=== PATIENT | female | born 1955 | race Caucasian/White ===

== ENCOUNTER 2022-09-24 11:04 | Emergency (ER) | payer MEDICARE, OTHER ==
[~2022-09-24] VITALS: Ht 170.2 cm; Wt 104.5 kg
[2022-09-24] MEDS ORDERED: ALBUTEROL SULF 2.5 MG/0.5ML(0.5%) NEB SOLN NEB ONE (11:45)
[2022-09-24] MEDS ORDERED: IPRATROPIUM BROM 0.5 MG/2.5ML INH SOL NEB ONE (11:45)
[2022-09-24 12:12] LABS: Basophils # (auto) 0.1 10 ^3/uL (0-0.2); Basophils % (auto) 1.1 % (0.0-2.0); Eosinophils # (auto) 0.2 10 ^3/uL (0-0.8); Red Cell Distribution Width 17.1 % (11.8-14.3); White Blood Cell 5.9 10^3/uL (4.4-10.8)
[2022-09-24 12:14] LABS: Eosinophils % (auto) 3.1 % (0.0-7.0); Hematocrit 40.5 % (36.0-46.0); Hemoglobin 13.2 g/dL (12.2-16.2); Lymphocytes # (auto) 1.5 10 ^3/uL (0.4-5.4); Lymphocytes % (auto) 25.7 % (10.0-50.0); Mean Corpuscular Hemoglobin 26.4 pg (28.0-32.0); Mean Corpuscular Hgb Conc. 32.6 g/dL (32.0-36.0); Mean Corpuscular Volume 80.8 fL (80.0-100.0); Monocytes # (auto) 0.3 10 ^3/uL (0-1.3); Monocytes % (auto) 4.3 % (0.0-12.0); Neutrophils # (auto) 3.9 10 ^3/uL (1.6-8.6); Neutrophils % (auto) 65.8 % (37.0-80.0); Nucleated Red Blood Cells % 0.2 %
[2022-09-24 12:35] LABS: INR 0.97 (0.9-1.15); Partial Thromboplastin Time 26.8 sec (24.6-33.4)
[2022-09-24 12:48] LABS: Albumin 3.8 g/dL (3.4-5.0); Calcium 8.7 mg/dL (8.5-10.1); Magnesium 2.1 mg/dL (1.6-2.6); Potassium 4.3 mmol/L (3.5-5.1)
[2022-09-24 12:51] LABS: BUN/Creatinine Ratio 23.1 (10.0-20.0); Bilirubin, Total 1.1 mg/dL (0.2-1.0); Total Protein 7.3 g/dL (6.4-8.2)
[2022-09-24] MEDS ORDERED: IOHEXOL 350 MG/ML 100ML IJ ONE (13:22)
[2022-09-24 15:00] VITALS: BP 133/65
[2022-09-24] MEDS ORDERED: hydrALAZINE HCL 20 MG/ML VL IV ONE (16:30)
[2022-09-24] MEDS ORDERED: KETOROLAC TROMETH 30 MG/ML 1ML VIAL IV ONE (16:45)
[2022-09-24] MEDS ORDERED: cefTRIAXone 1GM/50ML D5W 50 ML IV ONE (16:45)
[2022-09-24] MEDS ORDERED: CEPH250C PO (16:45)
== END 2022-09-24 17:20 | disposition home or self-care (01) ==
LOC: ER 11:04
DX: J18.9 Pneumonia, unspecified organism (principal); E11.9 Type 2 diabetes mellitus without complications; Z98.890 Other specified postprocedural states
CPT/HCPCS: 36415; 71045; 71275; 80053; 83735; 83880; 84484; 85025; 85379; 85610; 85730; 94640; 96365; 96375; 99285; J0696; J1885; J7644; Q9967

== ENCOUNTER 2023-01-24 09:06 | Inpatient (IN) | payer MEDICARE, BC ==
[~2023-01-24] VITALS: Ht 170.2 cm; Wt 97.1 kg
[2023-01-24] VITALS (12 sets, daily range): BP systolic 91–121; BP diastolic 45–66; PULSE 69–110; RESP 15–19; TEMP 98.3–98.5; O2SAT 94–100
[~2023-01-24 09:06] MED LIST: CEPH250C PO
[2023-01-24] MEDS ORDERED: HEPARIN SODIUM (PORCINE) 5000 UNITS/ML 1ML VIAL IV ONE (09:15)
[2023-01-24] MEDS ORDERED: MORPHINE SULFATE INJ 2 MG/ml SYRG IV ONE (09:15)
[2023-01-24] MEDS ORDERED: ONDANSETRON HCL 4 MG/2 ML VIAL IV ONE (09:15)
[2023-01-24] MEDS ORDERED: MORPHINE SULFATE INJ 2 MG/ml SYRG ONE (09:17)
[2023-01-24] MEDS ORDERED: HEPARIN SODIUM (PORCINE) 5000 UNITS/ML 1ML VIAL ONE (09:17)
[2023-01-24] MEDS ORDERED: ONDANSETRON HCL 4 MG/2 ML VIAL ONE (09:17)
[2023-01-24] MEDS ORDERED: LIDOCAINE 2%HCL (LOCAL ANESTH.) INJ 20ML MDV ONE (09:25)
[2023-01-24] MEDS ORDERED: HEPARIN IN NS 1000Units/500mL 1,500 ML ONE (09:25)
[2023-01-24] MEDS ORDERED: IODIXANOL 320MG/ML 100ML BTL IV ONE (09:25)
[2023-01-24] MEDS ORDERED: NITROGLYCERIN 0.4 MG SL TAB SL PRN (09:30)
[2023-01-24] MEDS ORDERED: MORPHINE SULFATE INJ 2 MG/ml SYRG IV PRN (09:30)
[2023-01-24] MEDS ORDERED: VERAPAMIL 2.5MG/ML INJ 2ML VIAL IV ONE (09:33)
[2023-01-24] MEDS ORDERED: MIDAZOLAM HCL 2MG/2ML 2ml VIAL (1mg/ml) ONE (09:34)
[2023-01-24] MEDS ORDERED: fentaNYL CITRATE 100 MCG/2 ML VL ONE (09:34)
[2023-01-24] MEDS ORDERED: ANGIOMAX 250 MG VIAL IV ONE (09:36)
[2023-01-24] MEDS ORDERED: SODIUM CHL 0.9% 50 ML ONE (09:36)
[2023-01-24] MEDS ORDERED: ATROPINE SULF 1 MG/10ml SYR ONE (09:40)
[2023-01-24 09:44] LABS: Basophils # (auto) 0.1 10 ^3/uL (0-0.2); Eosinophils # (auto) 0.4 10 ^3/uL (0-0.8); Eosinophils % (auto) 3.8 % (0.0-7.0); Hematocrit 39.8 % (36.0-46.0); Hemoglobin 12.8 g/dL (12.2-16.2); Lymphocytes # (auto) 3.1 10 ^3/uL (0.4-5.4); Lymphocytes % (auto) 32.3 % (10.0-50.0); Mean Corpuscular Hemoglobin 25.3 pg (28.0-32.0); Mean Corpuscular Hgb Conc. 32.1 g/dL (32.0-36.0); Mean Corpuscular Volume 78.8 fL (80.0-100.0); Monocytes # (auto) 0.8 10 ^3/uL (0-1.3); Monocytes % (auto) 7.9 % (0.0-12.0); Neutrophils # (auto) 5.3 10 ^3/uL (1.6-8.6); Nucleated Red Blood Cells % 0.1 %; Red Blood Cells 5.05 10^6/uL (4.0-5.20); Red Cell Distribution Width 20.4 % (11.8-14.3); White Blood Cell 9.7 10^3/uL (4.4-10.8)
[2023-01-24 09:54] LABS: Triglycerides 154 mg/dL (< 150)
[2023-01-24 09:55] LABS: Alanine Aminotransferase 16 U/L (7-40); Alkaline Phosphatase 78 U/L (46-116); Anion Gap 9 (5-15); Aspartate Aminotransferase 21 U/L (13-40); BUN/Creatinine Ratio 25.6 (10.0-20.0); Blood Urea Nitrogen 22 mg/dL (9-23); Carbon Dioxide 23 mmol/L (20-30); Chloride 107 mmol/L (98-107); Glucose 182 mg/dL (74-106); LDL Cholesterol 53 mg/dL (< 100); Potassium 4.4 mmol/L (3.5-5.1); Sodium 139 mmol/L (136-145)
[2023-01-24 09:56] LABS: Albumin 4.7 g/dL (3.2-4.8); Bilirubin, Total 1.3 mg/dL (0.2-1.0); Cholesterol 110 mg/dL (< 200); HDL Cholesterol 35 mg/dL (40-59); Total Protein 7.2 g/dL (5.7-8.2)
[2023-01-24] MEDS ORDERED: TICAGRELOR 90 MG TAB ONE (09:57)
[2023-01-24] MEDS ORDERED: LEVOTHYROXINE SODIUM 50 MCG TAB PO ONE (10:45)
[2023-01-24] MEDS ORDERED: DEXTROSE (50%) 50ML SYRG IV PRN (11:00)
[2023-01-24] MEDS: InsuLIN REG 1unit/0.01ml Soln (100units/ml) SC SCH ×3 (11:30→22:00)
[2023-01-24] MEDS: ACCU-CHEK COMFORT CURVE STRIP VI SCH ×3 (11:30→22:01)
[2023-01-24] MEDS ORDERED: ROSU10TA16 PO (14:03)
[2023-01-24] MEDS ORDERED: METF-372 PO (14:03)
[2023-01-24] MEDS ORDERED: LOPE7.5C PO (14:03)
[2023-01-24] MEDS ORDERED: EMPA1TAB3 PO (14:03)
[2023-01-24] MEDS ORDERED: ACET500T58 PO (14:03)
[2023-01-24] MEDS ORDERED: GABA-1250 PO (14:03)
[2023-01-24] MEDS ORDERED: LEVO50TA7 PO (14:03)
[2023-01-24] MEDS ORDERED: ERGO1CAP12 PO (14:03)
[2023-01-24] MEDS: SODIUM CHLORIDE 0.9% 1,000 ML IV SCH (17:58)
[2023-01-24] MEDS: TICAGRELOR 90 MG TAB PO SCH (22:01)
[2023-01-24] MEDS: ATORVASTATIN 20 MG TAB PO SCH (22:01)
[2023-01-25] VITALS (7 sets, daily range): BP systolic 108–128; BP diastolic 52–71; PULSE 63–82; RESP 18–20; TEMP 97.4–97.9; O2SAT 92–97
[2023-01-25] MEDS ORDERED: ACETAMINOPHEN 325 MG TAB PO PRN (05:00)
[2023-01-25] MEDS: ACCU-CHEK COMFORT CURVE STRIP VI SCH ×4 (06:32→23:00)
[2023-01-25] MEDS: SODIUM CHLORIDE 0.9% 1,000 ML IV SCH ×3 (06:32→23:00)
[2023-01-25] MEDS: InsuLIN REG 1unit/0.01ml Soln (100units/ml) SC SCH ×4 (06:33→23:05)
[2023-01-25] MEDS ORDERED: LEVOTHYROXINE SODIUM 50 MCG TAB PO SCH (07:00)
[2023-01-25] MEDS: TICAGRELOR 90 MG TAB PO SCH ×2 (09:20→22:59)
[2023-01-25] MEDS: ASPirin 81 mg TAB PO SCH (09:20)
[2023-01-25] MEDS ORDERED: ATORVASTATIN 20 MG TAB PO SCH (10:00)
[2023-01-25 12:38] LABS: Basophils # (auto) 0.1 10 ^3/uL (0-0.2); Eosinophils # (auto) 0.2 10 ^3/uL (0-0.8); Hemoglobin 11.7 g/dL (12.2-16.2); Monocytes # (auto) 0.4 10 ^3/uL (0-1.3)
[2023-01-25 12:39] LABS: Basophils % (auto) 0.8 % (0.0-2.0); Eosinophils % (auto) 3.3 % (0.0-7.0); Hematocrit 36.5 % (36.0-46.0); Lymphocytes # (auto) 1.5 10 ^3/uL (0.4-5.4); Lymphocytes % (auto) 21.8 % (10.0-50.0); Mean Corpuscular Hemoglobin 25.2 pg (28.0-32.0); Mean Corpuscular Volume 78.8 fL (80.0-100.0); Neutrophils # (auto) 4.6 10 ^3/uL (1.6-8.6); Neutrophils % (auto) 68.1 % (37.0-80.0); Red Blood Cells 4.63 10^6/uL (4.0-5.20); White Blood Cell 6.7 10^3/uL (4.4-10.8)
[2023-01-25 12:40] LABS: Red Cell Distribution Width 20.5 % (11.8-14.3)
[2023-01-25 12:56] LABS: Chloride 108 mmol/L (98-107); Potassium 3.7 mmol/L (3.5-5.1); Sodium 141 mmol/L (136-145)
[2023-01-25 12:57] LABS: Anion Gap 7 (5-15); Carbon Dioxide 26 mmol/L (20-30)
[2023-01-25 13:02] LABS: Blood Urea Nitrogen 15 mg/dL (9-23); Glucose 163 mg/dL (74-106)
[2023-01-25 14:04] LABS: Anisocytosis Slight; Platelet Estimate Adequate
[2023-01-25 14:21] LABS: Free T3 2.06 pg/mL (2.3-4.2)
[2023-01-25 14:22] LABS: Free T4 (Free Thyroxine) 0.57 ng/dL (0.89-1.76)
[2023-01-25] MEDS: METOPROLOL TARTRATE 25 MG TAB PO SCH (22:59)
[2023-01-25] MEDS: ATORVASTATIN 20 MG TAB PO SCH (23:00)
[2023-01-26 05:00] VITALS: BP 98/62; PULSE 70; RESP 18; TEMP 97.6; O2SAT 97
[2023-01-26] MEDS: ACCU-CHEK COMFORT CURVE STRIP VI SCH ×2 (06:09→11:30)
[2023-01-26] MEDS: InsuLIN REG 1unit/0.01ml Soln (100units/ml) SC SCH ×2 (06:16→11:30)
[2023-01-26 06:49] LABS: Urine Bacteria FEW /hpf (None Seen); Urine Blood Negative /uL (Negative); Urine Clarity HAZY (Clear); Urine Protein, UAD Negative (Negative); Urine Specific Gravity 1.016 (1.001-1.035); Urine Urobilinogen Normal (Negative); Urine WBC 51 /hpf (0 - 5); Urine pH 5.5 (5.0-8.0)
[2023-01-26 06:50] LABS: Amphetamine Screen, Urine Neg (NEGATIVE); Barbiturate Scree,Urine Neg (NEGATIVE); Urine Color Straw (Yellow)
[2023-01-26 06:51] LABS: Benzodiazephine Screen, Urine Neg (NEGATIVE); Cannabinoid Screen, Urine Neg (NEGATIVE); Cocaine Screen, Urine Neg (NEGATIVE); Opiate Scree,Urine Neg (NEGATIVE); Phencyclidine Screen, Urine Neg (NEGATIVE)
[2023-01-26] MEDS ORDERED: LEVOTHYROXINE SODIUM 50 MCG TAB PO SCH (07:00)
[2023-01-26 07:22] LABS: Basophils # (auto) 0.1 10 ^3/uL (0-0.2); Basophils % (auto) 1.2 % (0.0-2.0); Eosinophils # (auto) 0.3 10 ^3/uL (0-0.8); Hematocrit 34.9 % (36.0-46.0); Lymphocytes % (auto) 26.3 % (10.0-50.0); Monocytes # (auto) 0.4 10 ^3/uL (0-1.3); White Blood Cell 6.3 10^3/uL (4.4-10.8)
[2023-01-26 07:25] LABS: Eosinophils % (auto) 5.2 % (0.0-7.0); Hemoglobin 11.2 g/dL (12.2-16.2); Lymphocytes # (auto) 1.6 10 ^3/uL (0.4-5.4); Mean Corpuscular Hemoglobin 25.3 pg (28.0-32.0); Mean Corpuscular Hgb Conc. 32.1 g/dL (32.0-36.0); Mean Corpuscular Volume 78.8 fL (80.0-100.0); Monocytes % (auto) 6.7 % (0.0-12.0); Neutrophils # (auto) 3.8 10 ^3/uL (1.6-8.6); Neutrophils % (auto) 60.6 % (37.0-80.0); Red Blood Cells 4.43 10^6/uL (4.0-5.20)
[2023-01-26 07:42] LABS: Alanine Aminotransferase 11 U/L (7-40); Albumin 4.2 g/dL (3.2-4.8); Alkaline Phosphatase 81 U/L (46-116); Anion Gap 6 (5-15); Aspartate Aminotransferase 21 U/L (13-40); BUN/Creatinine Ratio 23.4 (10.0-20.0); Blood Urea Nitrogen 18 mg/dL (9-23); Calcium 8.7 mg/dL (8.7-10.4); Carbon Dioxide 25 mmol/L (20-30); Chloride 107 mmol/L (98-107); Glucose 131 mg/dL (74-106); Magnesium 1.9 mg/dL (1.6-2.6); Potassium 3.9 mmol/L (3.5-5.1); Sodium 138 mmol/L (136-145)
[2023-01-26 07:43] LABS: Bilirubin, Total 1.8 mg/dL (0.2-1.0); Total Protein 6.7 g/dL (5.7-8.2)
[2023-01-26 07:47] LABS: Red Cell Distribution Width 20.2 % (11.8-14.3)
[2023-01-26 08:00] VITALS: BP 117/71; PULSE 74; PULSE 77; RESP 18; TEMP 98; O2SAT 95
[2023-01-26 09:00] VITALS: BP 117/71; PULSE 74; RESP 18; TEMP 98; O2SAT 95
[2023-01-26] MEDS: ASPirin 81 mg TAB PO SCH (09:59)
[2023-01-26] MEDS: TICAGRELOR 90 MG TAB PO SCH (10:01)
[2023-01-26] MEDS: METOPROLOL TARTRATE 25 MG TAB PO SCH (10:02)
[2023-01-26 10:07] VITALS: BP 117/71; PULSE 74; RESP 18; TEMP 98; O2SAT 95
[2023-01-26] MEDS ORDERED: TICA90TA PO (11:31)
[2023-01-26] MEDS ORDERED: ATO40T PO (11:31)
[2023-01-26] MEDS ORDERED: ASPI-325 PO (11:31)
[2023-01-26] MEDS ORDERED: METO25TA93 PO (11:31)
[2023-01-26] MEDS ORDERED: LEVO75TA6 PO (11:31)
[2023-01-26 13:00] VITALS: BP 121/79; PULSE 71; RESP 20; TEMP 98.1; O2SAT 95
== END 2023-01-26 13:50 | disposition home or self-care (01) | DRG 321 ==
LOC: EDBD 09:06 → ER 09:06 → TELE 09:22 → TELE-WESTW 14:14
PROVIDERS: ADMIT Internal Medicine Geriatric Medicine; ATTEND Internal Medicine Geriatric Medicine
PROC: 027034Z Dilation of Coronary Artery, One Artery with Drug-eluting Intraluminal Device, Percutaneous Approach (ICD-10-PCS; principal; 2023-01-24)
PROC: 4A023N7 Measurement of Cardiac Sampling and Pressure, Left Heart, Percutaneous Approach (ICD-10-PCS; 2023-01-24)
PROC: B211YZZ Fluoroscopy of Multiple Coronary Arteries using Other Contrast (ICD-10-PCS; 2023-01-24)
DX: I21.19 ST elevation (STEMI) myocardial infarction involving other coronary artery of inferior wall (principal); J15.69 Pneumonia due to other Gram-negative bacteria; J15.9 Unspecified bacterial pneumonia; E11.9 Type 2 diabetes mellitus without complications; E03.9 Hypothyroidism, unspecified; E66.01 Morbid (severe) obesity due to excess calories; I10 Essential (primary) hypertension; I25.10 Atherosclerotic heart disease of native coronary artery without angina pectoris; E78.5 Hyperlipidemia, unspecified; Z68.32 Body mass index [BMI] 32.0-32.9, adult; Z79.899 Other long term (current) drug therapy; Z79.82 Long term (current) use of aspirin; Z86.718 Personal history of other venous thrombosis and embolism
CPT/HCPCS: 36415; 71045; 80048; 80053; 80061; 80307; 81001; 82306; 82607; 82962; 83036; 83735; 84439; 84443; 84481; 84484; 85025; 92928; 93005; 93306; 93458; 93971; 99152; 99291; G0378; J1815; J2250; J2405; Q9967

== ENCOUNTER → 2023-03-15 | Outpatient (CLI) | payer MEDICARE, BC ==
[~2023-03-15] MED LIST changes: +ACET500T58 PO; +ALBUAER3 IN; +APIX5TAB PO; +ASPI-325 PO; +ASPI-736 PO; +ATO40T PO; +ATOR20TA50 PO; +BLOO-89 XX; +BLOO1KIT60 XX; -CEPH250C PO; +EMPA1TAB PO; +EMPA1TAB3 PO; +ERGO1CAP12 PO; +ERGO1CAP23 PO; +GABA-1250 PO; +HYDR-4902 PO; +IBUP-1456 PO; +IBUP200C3 PO; +LANC-347 XX; +LEV50T PO; +LEVO50TA7 PO; +LEVO75TA6 PO; +LOPE7.5C PO; +METF-371 PO; +METF-372 PO; +METO25TA93 PO; +PREG50CA PO; +RIV20T PO; +TICA90TA PO
== END | disposition home or self-care (01) ==
LOC: EDUNIT# → XYW 10:47
PROVIDERS: ATTEND Student in an Organized Health Care Education/Training Program
DX: I51.7 Cardiomegaly (principal); I51.89 Other ill-defined heart diseases; R06.02 Shortness of breath
CPT/HCPCS: 93306

== ENCOUNTER 2023-03-19 00:04 | Inpatient (IN) | payer MEDICARE, BC ==
[~2023-03-19] VITALS: Ht 177.8 cm; Wt 90.9 kg
[2023-03-19] VITALS (9 sets, daily range): BP systolic 104–126; BP diastolic 52–67; PULSE 68–100; RESP 18; TEMP 36.6; O2SAT 95–97
[2023-03-19 00:52] LABS: Basophils # (auto) 0.1 10 ^3/uL (0-0.2); Basophils % (auto) 1.3 % (0.0-2.0); Eosinophils # (auto) 0.6 10 ^3/uL (0-0.8); Eosinophils % (auto) 7.4 % (0.0-7.0); Hematocrit 29.8 % (36.0-46.0); Hemoglobin 9.5 g/dL (12.2-16.2); Lymphocytes # (auto) 1.9 10 ^3/uL (0.4-5.4); Lymphocytes % (auto) 24.1 % (10.0-50.0); Mean Corpuscular Hgb Conc. 32.1 g/dL (32.0-36.0); Mean Corpuscular Volume 77.9 fL (80.0-100.0); Monocytes # (auto) 0.5 10 ^3/uL (0-1.3); Monocytes % (auto) 6.9 % (0.0-12.0); Neutrophils # (auto) 4.7 10 ^3/uL (1.6-8.6); Neutrophils % (auto) 60.3 % (37.0-80.0); Nucleated Red Blood Cells % 0.2 %; Red Blood Cells 3.82 10^6/uL (4.0-5.20); Red Cell Distribution Width 18.4 % (11.8-14.3); White Blood Cell 7.8 10^3/uL (4.4-10.8)
[2023-03-19 01:09] LABS: INR 1.02 (0.9-1.15); Partial Thromboplastin Time 28.4 SEC (24.5-34.5); Prothrombin Time 10.7 sec (9.3-11.8)
[2023-03-19 01:12] LABS: Alanine Aminotransferase 29 U/L (7-40); Albumin 4.4 g/dL (3.2-4.8); Alkaline Phosphatase 104 U/L (46-116); Anion Gap 10 (5-15); Aspartate Aminotransferase 24 U/L (13-40); BUN/Creatinine Ratio 29.5 (10.0-20.0); Bilirubin, Total 0.9 mg/dL (0.2-1.0); Blood Urea Nitrogen 23 mg/dL (9-23); Calcium 8.6 mg/dL (8.7-10.4); Carbon Dioxide 21 mmol/L (20-30); Chloride 107 mmol/L (98-107); Glucose 142 mg/dL (74-106); Magnesium 2.2 mg/dL (1.6-2.6); Sodium 138 mmol/L (136-145); Total Protein 6.8 g/dL (5.7-8.2)
[2023-03-19] MEDS ORDERED: MORPHINE SULFATE INJ 2 MG/ml SYRG IV ONE (01:15)
[2023-03-19] MEDS ORDERED: ONDANSETRON HCL 4 MG/2 ML VIAL IV ONE (01:15)
[2023-03-19 02:24] LABS: Urine Bacteria NONE SEEN /hpf (None Seen); Urine Blood Negative /uL (Negative); Urine Clarity Clear (Clear); Urine Color Colorless (Yellow); Urine Protein, UAD Negative (Negative); Urine Specific Gravity 1.019 (1.001-1.035); Urine Urobilinogen Normal (Negative); Urine WBC 3 /hpf (0 - 5)
[2023-03-19] MEDS ORDERED: NITROGLYCERIN 0.2MG/HR TOPICAL PATCH TD ONE (05:15)
[2023-03-19] MEDS ORDERED: HYDROcodone-ACET 5/325MG TAB PO ONE (05:15)
[2023-03-19] MEDS ORDERED: ASPirin 81 mg TAB PO ONE (05:15)
[2023-03-19] MEDS ORDERED: ACETAMINOPHEN 325 MG TAB PO PRN (05:45)
[2023-03-19] MEDS ORDERED: MORPHINE SULFATE INJ 2 MG/ml SYRG IV PRN ×2 (05:45)
[2023-03-19] MEDS ORDERED: NITROGLYCERIN 0.4 MG SL TAB SL PRN (05:45)
[2023-03-19] MEDS ORDERED: DEXTROSE (50%) 50ML SYRG IV PRN (05:45)
[2023-03-19] MEDS ORDERED: HYDROcodone-ACET 5/325MG TAB PO PRN (05:45)
[2023-03-19] MEDS ORDERED: ONDANSETRON HCL 4 MG/2 ML VIAL IV PRN (05:45)
[2023-03-19] MEDS ORDERED: DOCUSATE SOD 100 MG CAP PO PRN (05:45)
[2023-03-19 06:29] LABS: Alanine Aminotransferase 25 U/L (7-40); Albumin 4.5 g/dL (3.2-4.8); Alkaline Phosphatase 104 U/L (46-116); Anion Gap 10 (5-15); Aspartate Aminotransferase 25 U/L (13-40); BUN/Creatinine Ratio 35.1 (10.0-20.0); Blood Urea Nitrogen 26 mg/dL (9-23); Calcium 8.9 mg/dL (8.7-10.4); Carbon Dioxide 20 mmol/L (20-30); Chloride 108 mmol/L (98-107); Glucose 149 mg/dL (74-106); Potassium 4.3 mmol/L (3.5-5.1); Sodium 138 mmol/L (136-145)
[2023-03-19 06:30] LABS: Bilirubin, Total 0.9 mg/dL (0.2-1.0); Total Protein 7.2 g/dL (5.7-8.2)
[2023-03-19] MEDS: InsuLIN REG 1unit/0.01ml Soln (100units/ml) SC SCH ×3 (06:52→17:00)
[2023-03-19] MEDS: ACCU-CHEK COMFORT CURVE STRIP VI SCH ×4 (06:52→22:00)
[2023-03-19 07:27] LABS: Basophils # (auto) 0.1 10 ^3/uL (0-0.2); Eosinophils # (auto) 0.5 10 ^3/uL (0-0.8); Hemoglobin 9.2 g/dL (12.2-16.2); Lymphocytes # (auto) 1.8 10 ^3/uL (0.4-5.4); Monocytes # (auto) 0.5 10 ^3/uL (0-1.3); Neutrophils # (auto) 4.3 10 ^3/uL (1.6-8.6)
[2023-03-19 07:28] LABS: Basophils % (auto) 1.4 % (0.0-2.0); Eosinophils % (auto) 6.6 % (0.0-7.0); Hematocrit 29.1 % (36.0-46.0); Lymphocytes % (auto) 25.4 % (10.0-50.0); Mean Corpuscular Hemoglobin 24.2 pg (28.0-32.0); Mean Corpuscular Hgb Conc. 31.7 g/dL (32.0-36.0); Mean Corpuscular Volume 76.4 fL (80.0-100.0); Monocytes % (auto) 6.5 % (0.0-12.0); Neutrophils % (auto) 60.1 % (37.0-80.0); Nucleated Red Blood Cells % 0.1 %; Red Blood Cells 3.81 10^6/uL (4.0-5.20); Red Cell Distribution Width 18.3 % (11.8-14.3); White Blood Cell 7.1 10^3/uL (4.4-10.8)
[2023-03-19] MEDS ORDERED: cefTRIAXone 1GM/50ML D5W 50 ML IV ONE (08:30)
[2023-03-19] MEDS: ASPirin 81 mg TAB PO SCH (09:28)
[2023-03-19] MEDS: METOPROLOL TARTRATE 25 MG TAB PO SCH ×2 (09:29→22:00)
[2023-03-19] MEDS ORDERED: TICAGRELOR 90 MG TAB PO SCH (10:00)
[2023-03-19] MEDS ORDERED: ENOXAPARIN SOD 100 MG/1 ML SYRINGE SC SCH (10:00)
[2023-03-19] MEDS ORDERED: APIXABAN 5 MG TAB PO SCH (10:00)
[2023-03-19] MEDS ORDERED: IOHEXOL 350 MG/ML 100ML IJ ONE (15:40)
[2023-03-19] MEDS ORDERED: LIDOCAINE 2%HCL (LOCAL ANESTH.) INJ 20ML MDV ONE (15:40)
[2023-03-19] MEDS ORDERED: HEPARIN DRIP/D5W 100UNITS/ML 250 ML IV ONE (17:20)
[2023-03-19] MEDS ORDERED: HEPARIN SODIUM (PORCINE) 5000 UNITS/ML 1ML VIAL IV ONE (17:30)
[2023-03-19 21:29] LABS: Basophils # (auto) 0.1 10 ^3/uL (0-0.2); Eosinophils # (auto) 0.6 10 ^3/uL (0-0.8); Eosinophils % (auto) 4.8 % (0.0-7.0); Hemoglobin 10.2 g/dL (12.2-16.2); Lymphocytes # (auto) 3.3 10 ^3/uL (0.4-5.4); Monocytes # (auto) 0.6 10 ^3/uL (0-1.3); Neutrophils # (auto) 7.1 10 ^3/uL (1.6-8.6)
[2023-03-19 21:30] LABS: Basophils % (auto) 0.8 % (0.0-2.0); Hematocrit 33.6 % (36.0-46.0); Lymphocytes % (auto) 28.2 % (10.0-50.0); Mean Corpuscular Hemoglobin 23.6 pg (28.0-32.0); Mean Corpuscular Hgb Conc. 30.3 g/dL (32.0-36.0); Mean Corpuscular Volume 77.8 fL (80.0-100.0); Neutrophils % (auto) 61.2 % (37.0-80.0); Nucleated Red Blood Cells % 0.1 %; Red Blood Cells 4.32 10^6/uL (4.0-5.20); Red Cell Distribution Width 18.8 % (11.8-14.3); White Blood Cell 11.6 10^3/uL (4.4-10.8)
[2023-03-19 21:54] LABS: INR 1.04 (0.9-1.15); Partial Thromboplastin Time 34.7 SEC (24.5-34.5); Prothrombin Time 10.9 sec (9.3-11.8)
[2023-03-19] MEDS ORDERED: ATORVASTATIN 20 MG TAB PO SCH (22:00)
[2023-03-19] MEDS ORDERED: InsuLIN REG 1unit/0.01ml Soln (100units/ml) SC SCH (22:00)
[2023-03-19] MEDS ORDERED: HEPARIN DRIP/D5W 100UNITS/ML 250 ML IV SCH (22:00)
[2023-03-20] VITALS (7 sets, daily range): BP systolic 88–114; BP diastolic 52–59; PULSE 72–88; RESP 17–20; TEMP 97.5–99.3; O2SAT 93–98
[2023-03-20 01:35] LABS: INR 1.06 (0.9-1.15); Partial Thromboplastin Time 35.6 SEC (24.5-34.5); Prothrombin Time 11.1 sec (9.3-11.8)
[2023-03-20] MEDS ORDERED: fentaNYL 25MCG/HR 25 MCG/HR PAT TD SCH (02:00)
[2023-03-20] MEDS ORDERED: HEPARIN SODIUM (PORCINE) 5000 UNITS/ML 1ML VIAL IV ONE ×2 (02:00→19:30)
[2023-03-20] MEDS: ACCU-CHEK COMFORT CURVE STRIP VI SCH ×3 (05:44→17:00)
[2023-03-20] MEDS: InsuLIN REG 1unit/0.01ml Soln (100units/ml) SC SCH ×3 (05:44→17:00)
[2023-03-20 06:16] LABS: Basophils # (auto) 0.1 10 ^3/uL (0-0.2); Eosinophils # (auto) 0.4 10 ^3/uL (0-0.8); Neutrophils # (auto) 5.3 10 ^3/uL (1.6-8.6); Nucleated Red Blood Cells % 0.1 %; Red Cell Distribution Width 18.4 % (11.8-14.3)
[2023-03-20 06:19] LABS: Basophils % (auto) 0.9 % (0.0-2.0); Eosinophils % (auto) 4.9 % (0.0-7.0); Hematocrit 29.6 % (36.0-46.0); Hemoglobin 9.2 g/dL (12.2-16.2); Lymphocytes # (auto) 1.9 10 ^3/uL (0.4-5.4); Lymphocytes % (auto) 23.5 % (10.0-50.0); Mean Corpuscular Hemoglobin 24.5 pg (28.0-32.0); Mean Corpuscular Hgb Conc. 31.1 g/dL (32.0-36.0); Mean Corpuscular Volume 78.7 fL (80.0-100.0); Monocytes # (auto) 0.4 10 ^3/uL (0-1.3); Monocytes % (auto) 5.5 % (0.0-12.0); Neutrophils % (auto) 65.2 % (37.0-80.0); Red Blood Cells 3.76 10^6/uL (4.0-5.20); White Blood Cell 8.1 10^3/uL (4.4-10.8)
[2023-03-20 06:42] LABS: Alanine Aminotransferase 24 U/L (7-40); Alkaline Phosphatase 98 U/L (46-116); Anion Gap 7 (5-15); Aspartate Aminotransferase 24 U/L (13-40); BUN/Creatinine Ratio 27.5 (10.0-20.0); Blood Urea Nitrogen 19 mg/dL (9-23); Calcium 8.4 mg/dL (8.7-10.4); Carbon Dioxide 24 mmol/L (20-30); Chloride 107 mmol/L (98-107); Glucose 135 mg/dL (74-106); Potassium 4.2 mmol/L (3.5-5.1); Sodium 138 mmol/L (136-145)
[2023-03-20 06:43] LABS: Albumin 4.3 g/dL (3.2-4.8); Total Protein 6.7 g/dL (5.7-8.2)
[2023-03-20] MEDS ORDERED: LEVOTHYROXINE SODIUM 50 MCG TAB PO SCH (07:00)
[2023-03-20 08:04] LABS: INR 1.04 (0.9-1.15); Partial Thromboplastin Time 43.7 SEC (24.5-34.5); Prothrombin Time 10.9 sec (9.3-11.8)
[2023-03-20] MEDS ORDERED: cefTRIAXone 1GM/50ML D5W 50 ML IV SCH (09:00)
[2023-03-20] MEDS: METOPROLOL TARTRATE 25 MG TAB PO SCH (10:00)
[2023-03-20] MEDS: ASPirin 81 mg TAB PO SCH (10:18)
[2023-03-20] MEDS ORDERED: HEPARIN DRIP/D5W 100UNITS/ML 250 ML IV SCH ×2 (11:00→19:30)
[2023-03-20 18:20] LABS: INR 1.04 (0.9-1.15); Prothrombin Time 10.9 sec (9.3-11.8)
[2023-03-20 18:59] LABS: COVID19 ANTIGEN SOFIA FIA NEGATIVE (NEGATIVE)
== END 2023-03-20 20:10 | disposition short-term general hospital (02) | DRG 281 ==
LOC: EDBD 00:04 → ER 00:04 → TELE 05:44 → TELE-WESTW 15:20
PROVIDERS: ADMIT Nurse Practitioner Family; ATTEND Nurse Practitioner Family
PROC: 4A023N7 Measurement of Cardiac Sampling and Pressure, Left Heart, Percutaneous Approach (ICD-10-PCS; principal; 2023-03-19)
PROC: B211YZZ Fluoroscopy of Multiple Coronary Arteries using Other Contrast (ICD-10-PCS; 2023-03-19)
DX: I21.4 Non-ST elevation (NSTEMI) myocardial infarction (principal); N39.0 Urinary tract infection, site not specified; Z20.822 Contact with and (suspected) exposure to COVID-19; I25.110 Atherosclerotic heart disease of native coronary artery with unstable angina pectoris; E11.9 Type 2 diabetes mellitus without complications; E66.9 Obesity, unspecified; E78.5 Hyperlipidemia, unspecified; I10 Essential (primary) hypertension; Z68.28 Body mass index [BMI] 28.0-28.9, adult; Z79.01 Long term (current) use of anticoagulants; Z79.84 Long term (current) use of oral hypoglycemic drugs; Z82.3 Family history of stroke; Z82.49 Family history of ischemic heart disease and other diseases of the circulatory system; Z83.3 Family history of diabetes mellitus; Z86.718 Personal history of other venous thrombosis and embolism; Z95.1 Presence of aortocoronary bypass graft; Z95.5 Presence of coronary angioplasty implant and graft
CPT/HCPCS: 36415; 71045; 80053; 81001; 82962; 83036; 83735; 84484; 85025; 85610; 85730; 87086; 87426; 93005; 99152; C1887; G0378; J0696; J1815